=== PATIENT | female | born 1995 | race Caucasian/White ===

== ENCOUNTER 2021-07-03 21:54 | Emergency (ER) | payer OTHER, SELFPAY ==
[2021-07-03 21:56] VITALS: BP 131/93; PULSE 96; RESP 14; TEMP 36.5; O2SAT 98; BMI 29.4
[2021-07-03] MEDS: Oxymetazoline 0.05% 1 SPRAY SPRAY.BTL 2 SPRAY NASAL (23:07)
--- NOTE | 2021-07-03 23:08 | EDS_ITS ---
HPI History of Present Illness Chief Complaint: Nosebleed Informant: patient Onset/Context/Timing Onset: Today and Hours Context: Gradual Onset Timing: Continuous Current Severity: Mild Maximum Severity: Mild Narrative Narrative: 25-year-old female no significant past medical history other than Crohn's disease presents with nosebleed. States it started on 830 on the right side and moved to the left also. Denies any bruising, hematuria or melena. Does not frequently get nosebleeds. Denies trauma. Prior similar symptoms: No Recent Illness/Hospitalization: No PFSH PFSH Medical History Anxiety Home Medications ferrous sulfate [iron] 325 mg PO DAILY 07/03/21 [History Last Taken Unknown] loratadine 10 mg PO DAILY 07/03/21 [History Last Taken Unknown] mecobalamin (vitamin B12) [B12 Active] 500 mcg PO DAILY 07/03/21 [History Last Taken Unknown] minocycline 100 mg PO DAILY 07/03/21 [History Last Taken Unknown] [id number]-calcium-mins [Women's One Daily] 1 tab PO DAILY 07/03/21 [History Last Taken Unknown] riboflavin (vitamin B2) [Vitamin B-2] 100 mg PO DAILY 07/03/21 [History Last Taken Unknown] venlafaxine 37.5 mg PO DAILY 07/03/21 [History Last Taken Unknown] Allergy/AdvReac Type Severity Reaction Status Date / Time azithromycin [From Zithromax] AdvReac Other Verified 07/03/21 21:56 no surgical history Social History Smoking Status: Never smoker ROS ROS ED ROS Narrative Patient denies recent illness. Review of Systems ROS Unobtainable: Denies due to encephalopathy Constitutional Constitutional ED: Denies fever(s) Eyes Eyes: Denies change in vision ENT ENT ED: Denies ear pain Cardiovascular Cardiovascular: Denies chest pain Respiratory/Chest Respiratory/Chest: Denies dyspnea Gastrointestinal Gastrointestinal: Denies abdominal pain, diarrhea, nausea or vomiting Genitourinary Genitourinary ED: Denies dysuria Musculoskeletal Musculoskeletal: Denies myalgias Integumentary Denies rash Neurologic Neurologic: Denies headache(s) Psychiatric Psychiatric: Denies depression Endocrine Endocrinology: Denies polyuria Allergic/Immunologic Allergic/Immunologic ED: Denies urticaria EXAM Physical Exam Narrative Exam Narrative: 25-year-old female no acute distress. Vital signs stable afebrile. H EENT exam right anterior Jeri backs plexus area of the septum raw. Minimal blood currently. No clots. Left nares unremarkable. Posterior pharynx normal no blood. Lungs are clear equal symmetrical. Heart regular rate and rhythm. Abdomen soft nontender. Moving all 4 extremities. Skin unr emarkable no bruising. Const Vital Signs: 07/03/21 21:56 Temperature 97.7 F L Temperature Source Temporal Pulse Rate 96 Respiratory Rate 14 Blood Pressure 131/93 H Blood Pressure Mean 105 Pulse Ox 98 Oxygen Delivery Method Room Air Positive well nourished and well developed General Appearance ED: well developed and NAD HEENT Reports moist mucous membranes HEENT Narrative: Right naris area of very minimal bleeding. Negative for trauma or tenderness Eyes PERRL and EOMs intact bilaterally Neck no lymphadenopathy, supple and no JVD General: Negative for tenderness Chest Wall inspection of chest normal and palpation of chest normal Resp normal respiratory effort and clear to auscultation bilaterally Cardio regular rate, regular rhythm, S1 normal heart sound, S2 normal heart sound and no murmurs GI normal to inspection, nondistended, normoactive bowel sounds, non-tender and non-distended Auscultation: normoactive bowel sounds Palpation: soft Back/Spine no CVA tenderness General Back: Negative for CVA tenderness Extremity normal to inspection General Extremety ED: Negative for edema or tenderness General Extremity: Negative for edema Neuro oriented x3 and CN's II-XII intact bilaterally Sensorium / Orientation: alert Motor Exam: strength 5/5 throughout Psych mental status grossly normal Skin no rashes or lesions noted and no wounds MDM MDM MDM Narrative Medical decision making narrative: Young female with a right-sided minor nosebleed. Cotton balls were placed in both naris soaked with Afrin. Anterior nasal pack will be placed. She will be discharged home on Keflex. Have that removed in 3 days. Return if worse. Repeat exam patient is doing well at 11:30 PM. I removed the cotton balls. Placed a Merocel pack lubricated with bacitracin ointment on the right side of her nose. And dressing will be applied. Patient was instructed on nasal pack care. She will remove it in 2 to 3 days. She will be placed on antibiotic during that time. Procedures Other Procedures Procedure(s): Anterior Merocel nasal pack placed by ER. Discharge Plan Triage Chief Complaint: Nosebleed ED Provider: Gm Cisse Dx/Rx/DC Orders Clinical Impression: Acute anterior epistaxis Instructions: Nosebleed Prescriptions: No Action riboflavin (vitamin B2) [Vitamin B-2] 100 mg Tablet 100 mg PO DAILY RF: 0 minocycline 100 mg Capsule 100 mg PO DAILY RF: 0 venlafaxine 37.5 mg Tablet 37.5 mg PO DAILY RF: 0 ferrous sulfate [iron] 325 mg (65 mg iron) Tablet 325 mg PO DAILY RF: 0 loratadine 10 mg Capsule 10 mg PO DAILY RF: 0 Women's One Daily 18 mg iron-400 mcg-500 mg Ca Tablet 1 tab PO DAILY RF: 0 B12 Active 1,000 mcg Tablet,Chewable 500 mcg PO DAILY RF: 0 Primary Care Provider: Marisa Wright,Out of Referrals: Marisa Wright,Out of [Primary Care Provider] -
== END 2021-07-03 23:49 | disposition home or self-care (01) ==
LOC: ED 23:42
PROVIDERS: Emergency Provider Emergency Medicine
DX: R04.0 Epistaxis (principal); K50.90 Crohn's disease, unspecified, without complications; F41.9 Anxiety disorder, unspecified; Z79.899 Other long term (current) drug therapy
CPT/HCPCS: 30901; 99282; A4216